=== PATIENT | male | born 1945 | race Caucasian/White ===

== ENCOUNTER 2022-01-28 17:25 | Emergency (ER) | payer MEDICARE, OTHER ==
--- NOTE | 2022-01-28 17:48 | ED Physician Documentation ---
History of Present Illness - Stated complaint Stated Complaint: FALL - Chief complaint Chief Complaint: Trauma Hd/Nk - History obtained from History obtained from: EMS - History of Present Illness Timing: Today Pain level max: 0 Pain level now: 0 - Additonal information Additional information: Patient is a 76-year-old male who presents to the emergency department after a fall today. He lives in memory care, he is unable to give history. EMS states that they found him on his side on the floor next to his bed. Bleeding from the mouth. He is not on blood thinners. Patient is not complaining of any pain. Unknown loss of consciousness. Review of Systems Unable to obtain: Dementia PD PAST MEDICAL HISTORY - Past Medical History Past Medical History: Yes Neuro: Dementia, Parkinson's - Present Medications Home Medications: Ambulatory Orders Medication Instructions Recorded Confirmed Carbidopa/Levodopa 25/100 [Sinemet 1 tab PO TID 01/28/22 01/28/22 25 mg/100 mg] Cholecalciferol [Vitamin D3] 25 mcg PO DAILY 01/28/22 01/28/22 Lisinopril/Hydrochlorothiazide 1 each PO DAILY 01/28/22 01/28/22 [Zestoretic 10-12.5 mg Tablet] QUEtiapine [SEROquel] 25 mg PO BID 01/28/22 01/28/22 Ubidecarenone [Coenzyme Q10] 100 mg PO DAILY 01/28/22 01/28/22 buPROPion HCL [Bupropion Xl] 300 mg PO DAILY 01/28/22 01/28/22 - Allergies Allergies/Adverse Reactions: Allergies Allergy/AdvReac Type Severity Reaction Status Date / Time amoxicillin Allergy Unknown Verified 01/28/22 17:40 pramipexole Allergy Unknown Verified 01/28/22 17:40 PD ED PE NORMAL - Vitals Vital signs reviewed: Yes - General General: No acute distress, Well developed/nourished, Other (Alert, pleasant, confused to place and time) - HEENT HEENT: PERRL, EOMI, Moist mucous membranes, Other (Abrasion to the right cheek. Small abrasion on the right inner cheek. Mild dried blood in the mouth. No scalp hematomas or other lacerations.) - Neck Neck: Other (Patient in a cervical collar, no tenderness) - Cardiac Cardiac: RRR - Respiratory Respiratory: No respiratory distress, Clear bilaterally - Abdomen Abdomen: Soft, Non tender, Non distended - Back Back: No spinal TTP - Derm Derm: Warm and dry - Extremities Extremities: Normal ROM s pain, Other (Full range of motion of the bilateral elbows, wrists, shoulders, knees, ankles and hips without pain) - Neuro Neuro: No motor deficit, No sensory deficit Eye Opening: Spontaneous Motor: Obeys Commands Verbal: Confused GCS Score: 14 Results - Vitals Vitals: Vital Signs - 24 hr 01/28/22 01/28/22 01/28/22 17:25 17:42 20:00 Temperature 36.5 C Heart Rate 70 71 78 Respiratory 17 16 18 Rate Blood Pressure 131/79 H 131/89 H 127/69 O2 Saturation 100 100 100 01/28/22 21:19 Temperature Heart Rate 88 Respiratory 22 Rate Blood Pressure 124/77 O2 Saturation 98 Oxygen O2 Source Room air - Labs Labs: Laboratory Tests 01/28/22 01/28/22 17:47 17:47 WBC 10.2 RBC 4.69 L Hgb 15.2 Hct 43.9 MCV 93.6 MCH 32.4 H MCHC 34.6 RDW 12.9 Plt Count 168 MPV 10.5 Neut # (Auto) 8.6 H Lymph # (Auto) 0.7 L [place] # (Auto) 0.8 Eos # (Auto) 0.1 Baso # (Auto) 0.0 Absolute Nucleated RBC 0.00 Nucleated RBC % 0.0 Sodium 137 Potassium 3.9 Chloride 100 L Carbon Dioxide 29 Anion Gap 8.0 BUN 26 H Creatinine 0.8 Estimated GFR (MDRD) 94 Glucose 115 H Calcium 9.5 Total Bilirubin 1.5 H AST 16 ALT < 10 L Alkaline Phosphatase 51 Total Protein 6.6 L Albumin 4.3 Globulin 2.3 Albumin/Globulin Ratio 1.9 - Rads (name of study) Head CT Radiology: Final report received, EMP read contemporaneously, See rad report Maxillofacial CT Radiology: Final report received, EMP read contemporaneously, See rad report Cervical spine CT Radiology: Final report received, EMP read contemporaneously, See rad report PD MEDICAL DECISION MAKING - ED course Complexity details: reviewed results, re-evaluated patient, considered differential, d/w patient, d/w family ED course: No acute findings on CT scans. Patient is dehydrated and was given IV fluids. He road tested well with a walker. Wounds were cleansed. No lacerations to repair in the mouth. No facial fractures. No spinal fractures. Patient was dehydrated and was given IV fluids. Ambulating at his baseline with a walker. We will have him follow-up with his doctor for further care. was at bedside and plan was discussed with her. Family counseled regarding signs and symptoms for which I believe and urgent re-evaluation would be necessary. Family with good understanding of and agreement to plan and is comfortable going home at this time This document was made in part using voice recognition software. While efforts are made to proofread this document, sound alike and grammatical errors may occur. Departure - Departure Disposition: 01 Home, Self Care Clinical Impression: Fall from ground level, Dehydration Laceration of mouth Qualifiers: Encounter type: initial encounter Qualified Code(s): S01.512A - Laceration without foreign body of oral cavity, initial encounter Facial contusion Qualifiers: Encounter type: initial encounter Qualified Code(s): S00.83XA - Contusion of other part of head, initial encounter Condition: Good Instructions: ED Mechanical Fall Follow-Up: your,doctor in 1 week [Other] Comments: His head CT, cervical spine CT and maxillofacial CT do not show any acute abnormalities today. He was dehydrated and was given IV fluids. Please make sure he is drinking at home. Return if he worsens. The laceration in the mouth will heal on its own. Recommend a liquid diet for the next 24 hours.
[2022-01-28 17:54] LABS: BASOPHILS % (AUTO) 0.2 %; EOSINOPHILS # (AUTO) 0.1 10^3/uL (0.0-0.7); EOSINOPHILS % (AUTO) 0.6 %; HCT - HEMATOCRIT 43.9 % (42.0-52.0); HGB - HEMOGLOBIN 15.2 g/dL (14.0-18.0); LYMPHOCYTES # (AUTO) 0.7 10^3/uL (1.5-3.5); LYMPHOCYTES % (AUTO) 6.4 %; MEAN CORPUSCULAR HEMOGLOBIN 32.4 pg (27.0-31.0); MEAN CORPUSCULAR HGB CONC 34.6 g/dL (32.0-36.0); MEAN CORPUSCULAR VOLUME 93.6 fL (80.0-94.0); MEAN PLATELET VOLUME 10.5 fL (7.4-11.4); MONOCYTES # (AUTO) 0.8 10^3/uL (0.0-1.0); MONOCYTES % (AUTO) 7.8 %; NEUTROPHILS # (AUTO) 8.6 10^3/uL (1.5-6.6); NEUTROPHILS % (AUTO) 84.6 %; PLT - PLATELET COUNT 168 10^3/uL (130-450); RED BLOOD COUNT 4.69 10^6/uL (4.70-6.10); RED CELL DISTRIBUTION WIDTH 12.9 % (12.0-15.0); WHITE BLOOD COUNT 10.2 x10^3/uL (4.8-10.8)
[2022-01-28 18:03] LABS: ALBUMIN 4.3 g/dL (3.2-5.5); ALBUMIN/GLOBULIN RATIO 1.9 (1.0-2.2); ALKALINE PHOSPHATASE 51 IU/L (42-121); ALT ALANINE AMINOTRANSFERASE < 10 IU/L (10-60); AST ASPARTATE AMINOTRANSFERASE 16 IU/L (10-42); BILIRUBIN,TOTAL 1.5 mg/dL (0.2-1.0); BUN - BLOOD UREA NITROGEN 26 mg/dL (6-20); CALCIUM 9.5 mg/dL (8.5-10.3); CARBON DIOXIDE - CO2 29 mmol/L (21-32); CHLORIDE 100 mmol/L (101-111); CREATININE 0.8 mg/dL (0.6-1.2); GFR - MDRD 94 (>89); GLUCOSE 115 mg/dL (70-100); POTASSIUM 3.9 mmol/L (3.5-5.0); SODIUM 137 mmol/L (135-145); TOTAL PROTEIN 6.6 g/dL (6.7-8.2)
--- NOTE | 2022-01-28 18:32 | CT Report ---
PROCEDURE: HEAD WO INDICATIONS: fall, dementia, head/face/neck injury TECHNIQUE: Noncontrast 4.5 mm thick angled axial sections acquired from the foramen magnum to the vertex. For r adiation dose reduction, the following was used: automated exposure control, adjustment of mA and/or kV according to patient size. COMPARISON: None. FINDINGS: Image quality: Excellent. CSF spaces: Basal cisterns are patent. No extra-axial fluid collections. Ventricles are normal in size and shape. Brain: No midline shift. No intracranial masses or hemorrhage. Lee-white matter interface is norm al. There is diffuse cortical volume loss with associated ex vacuo dilatation of the bilateral ventr icles. No acute intracranial hemorrhage or evidence of transcortical infarction. Scattered bilatera l periventricular white matter hypoattenuation likely sequela from chronic small vessel ischemic dise ase. Atherosclerotic calcifications within the intracranial segments of the bilateral internal caroti d arteries are noted. Skull and face: Calvarium and visualized facial bones are intact, without suspicious lesions. Sinuses: Visualized sinuses and mastoids are clear. IMPRESSION: CT head without acute intracranial abnormalities. No acute calvarial fractures. Age-related senescent changes and sequela chronic small vessel ischemic disease. Reviewed by: Ravindra Ellis MD on 01/28/2022 6:30 PM PDT Approved by: Ravindra Ellis MD on 01/28/2022 6:30 PM PDT Station ID: [id number]
--- NOTE | 2022-01-28 18:34 | CT Report ---
PROCEDURE: CERVICAL SPINE WO INDICATIONS: fall, dementia, head/face/neck injury TECHNIQUE: Noncontrast 3 mm thick sections acquired from the skull base to the T4 level. Sagittal and coronal r eformats were then constructed. For radiation dose reduction, the following was used: automated exp osure control, adjustment of mA and/or kV according to patient size. COMPARISON: None. FINDINGS: Image quality: Excellent. Bones: No acute fractures or dislocations. Visualized superior ribs are intact. Craniocervical giovanni ction is intact. C1-C2 relationship is preserved. Normal bony alignment. Moderate-severe multilevel c ervical spondylosis most severe from C3-4 through C6-7. Soft tissues: Prevertebral soft tissues are normal in thickness. No paravertebral hematomas. No ap ical pneumothoraces. Atherosclerotic vascular calcifications. IMPRESSION: Cervical spine without acute fracture or traumatic malalignment. Moderate-severe multilevel cervical spondylosis most prominent from C3-4 through C6-7. Reviewed by: Ravindra Ellis MD on 01/28/2022 6:33 PM PDT Approved by: Ravindra Ellis MD on 01/28/2022 6:33 PM PDT Station ID: [id number]
--- NOTE | 2022-01-28 18:38 | CT Report ---
PROCEDURE: MAXILLOFACIAL WO INDICATIONS: fall, dementia, head/face/neck injury TECHNIQUE: Noncontrast 1.5 mm thick axial images acquired from the mandible through the frontal sinuses, with co nikki and sagittal reformatting. For radiation dose reduction, the following was used: automated ex posure control, adjustment of mA and/or kV according to patient size. COMPARISON: None. FINDINGS: Image quality: Excellent. Bones and teeth: Orbital ríos are intact. Sinus ríos show no fracture or deformity. Nasal bones and septum are intact. Visualized portions of the mandible demonstrate no fractures or subluxation. Zygomatic arches are intact. Pterygoid plates are intact. Visualized portions of the skull base an d auditory canals are intact. Sinuses: Paranasal sinuses are aerated, without fluid levels, mucosal thickening, or mucoceles. Mas toid air cells are aerated. Soft tissues: No edema, masses, or fluid collections. No enlarged lymph nodes. No soft tissue lace rations or debris. Vascular: Visualized vascular structures appear normal in the absence of contrast. Bony vascular fo ramina and canals are intact. IMPRESSION: Negative CT of the maxillofacial bones. No acute fracture or dislocation seen. Reviewed by: Ravindra Ellis MD on 01/28/2022 6:37 PM PDT Approved by: Ravindra Ellis MD on 01/28/2022 6:37 PM PDT Station ID: [id number]
[2022-01-28] MEDS ORDERED: SODIUM CHLORIDE 0.9% 1,000 ML IV STA (19:02)
[2022-01-28 21:21] VITALS: BP 124/77
== END 2022-01-28 22:15 | disposition home or self-care (01) ==
LOC: ED 17:25
DX: E86.0 Dehydration (principal); S00.512A Abrasion of oral cavity, initial encounter; S00.83XA Contusion of other part of head, initial encounter; W18.30XA Fall on same level, unspecified, initial encounter; Y92.193 Bedroom in other specified residential institution as the place of occurrence of the external cause
CPT/HCPCS: 36415; 80053; 85025; 96360; 99281

== ENCOUNTER 2022-07-27 21:13 | Outpatient (CLI) | payer MEDICARE, OTHER | END 2022-07-27 23:59 | disposition critical access hospital (66) | LOC: EMS 21:13 | DX: R05.9 Cough, unspecified (principal); R53.1 Weakness; R63.8 Other symptoms and signs concerning food and fluid intake | CPT/HCPCS: A0425; A0429 ==

== ENCOUNTER 2022-07-27 21:34 | Emergency (ER) | payer MEDICARE, OTHER ==
--- NOTE | 2022-07-27 21:35 | ED Physician Documentation ---
History of Present Illness - Stated complaint Stated Complaint: COUGH - History obtained from History obtained from: EMS, Other (HPI from EMS; EMS obtained information from [facility] (the facility from which patient is being sent). Patient cannot contribute to HPI nor ROS due to dementia.) - History of Present Illness Timing: Unknown - Additonal information Additional information: HPI and ROS limited due to dementia. Patient has had 1 to 2 days of dry cough, decreased appetite, generalized weakness. Per EMS, the [facility] at home [facility] is requesting testing for RSV/influenza/COVID. EMS says that staff reports decreased appetite for 1 to 2 days as noted above, although there is a note accompanying patient's documentation that indicates patient "Ate 100% of breakfast". The same note does indicate that insulin was held due to a blood glucose check of 89. EMS note that patient had 90% pulse ox on room air during their initial assessment, which increased to 96% with 2 L of nasal cannula oxygen in place. Patient does not normally use oxygen. EMS performed a fingerstick for blood sugar on route and result was 132. Review of Systems Unable to obtain: Dementia PD PAST MEDICAL HISTORY - Past Medical History Past Medical History: Yes Cardiovascular: Hypertension Neuro: Dementia, Parkinson's - Present Medications Home Medications: Ambulatory Orders Medication Instructions Recorded Confirmed Carbidopa/Levodopa 25/100 [Sinemet 1 tab PO TID 01/28/22 07/27/22 25 mg/100 mg] Cholecalciferol [Vitamin D3] 25 mcg PO DAILY 01/28/22 01/28/22 Lisinopril/Hydrochlorothiazide 1 each PO DAILY 01/28/22 07/27/22 [Zestoretic 10-12.5 mg Tablet] QUEtiapine [SEROquel] 25 mg PO BID 01/28/22 07/27/22 Ubidecarenone [Coenzyme Q10] 100 mg PO DAILY 01/28/22 07/27/22 buPROPion HCL [Bupropion Xl] 300 mg PO DAILY 01/28/22 07/27/22 Azithromycin [Zithromax] 250 mg PO DAILY #4 tablet 07/28/22 - Allergies Allergies/Adverse Reactions: Allergies Allergy/AdvReac Type Severity Reaction Status Date / Time amoxicillin Allergy Unknown Verified 07/27/22 21:47 pramipexole Allergy Unknown Verified 07/27/22 21:47 - Living Situation Living Arrangement: reports: Assisted living PD ED PE NORMAL - Vitals Vital signs reviewed: Yes - General General: No acute distress, Well developed/nourished, Other (no eye contact (keeps eyes closed; does not follow commands including does not open eyes)) - HEENT HEENT: PERRL, Other (pasty/tacky mucous membranes) - Cardiac Cardiac: RRR - Respiratory Respiratory: No respiratory distress, Clear bilaterally - Abdomen Abdomen: Normal bowel sounds, Soft, Non tender, Non distended - Neuro Eye Opening: To Pain Motor: Localizes to Pain Verbal: None GCS Score: 8 Results - Vitals Vitals: Vital Signs - 24 hr 07/28/22 07/28/22 07/28/22 00:54 02:02 02:44 Heart Rate 87 82 81 Respiratory 27 H 28 H 25 H Rate Blood Pressure 114/99 H 132/94 H 123/86 H O2 Saturation 98 98 99 If not protocol 2 : Oxygen Flow, liters/minute Oxygen O2 Source Room air Oxygen Flow Rate 2 - Labs Labs: Laboratory Tests 07/27/22 07/27/22 07/27/22 21:40 21:49 21:49 WBC 11.1 H RBC 4.08 L Hgb 12.9 L Hct 39.0 L MCV 95.6 H MCH 31.6 H MCHC 33.1 RDW 13.1 Plt Count 222 MPV 9.9 Neut # (Auto) 10.1 H Lymph # (Auto) 0.3 L [place] # (Auto) 0.5 Eos # (Auto) 0.0 Baso # (Auto) 0.1 Absolute Nucleated RBC 0.00 Band Neuts % (Manual) Not Reportable Abnorm Lymph % (Manual) Not Reportable Nucleated RBC % 0.0 Neutrophils # (Manual) Not Reportable Lymphocytes # (Manual) Not Reportable Monocytes # (Manual) Not Reportable Eosinophils # (Manual) Not Reportable Basophils # (Manual) Not Reportable Differential Comment MANUAL=AUTO DIFF WBC Morphology NORMAL APPEARANCE Platelet Estimate NORMAL (130-450,000) Platelet Morphology NORMAL APPEARANCE RBC Morph Micro Appear NORMAL APPEARANCE Sodium 140 Potassium 3.6 Chloride 102 Carbon Dioxide 28 Anion Gap 10.0 BUN 37 H Creatinine 0.9 Estimated GFR (MDRD) 82 L Glucose 164 H Calcium 8.8 Total Bilirubin 2.1 H AST 19 ALT < 10 L Alkaline Phosphatase 54 Total Protein 6.6 L Albumin 3.0 L Globulin 3.6 Albumin/Globulin Ratio 0.8 L Lipase 24 Nasal Adenovirus (PCR) NOT DETECTED Nasal B. parapertussis DNA (PCR) NOT DETECTED Nasal Coronavir 229E PCR NOT DETECTED Nasal Coronavir HKU1 PCR NOT DETECTED Nasal Coronavir NL63 PCR NOT DETECTED Nasal Coronavir OC43 PCR NOT DETECTED Nasal Enterovir/Rhinovir PCR NOT DETECTED Nasal Influenza B PCR NOT DETECTED Nasal Influenza A PCR NOT DETECTED Nasal Parainfluen 1 PCR NOT DETECTED Nasal Parainfluen 2 PCR NOT DETECTED Nasal Parainfluen 3 PCR NOT DETECTED Nasal Parainfluen 4 PCR NOT DETECTED Nasal RSV (PCR) DETECTED A Nasal B.pertussis DNA PCR NOT DETECTED Nasal C.pneumoniae (PCR) NOT DETECTED Jus Human Metapneumo PCR NOT DETECTED Nasal M.pneumoniae (PCR) NOT DETECTED Nasal SARS-CoV-2 (PCR) NOT DETECTED - Rads (name of study) chest xray Radiology: Prelim report reviewed, EMP read indepedently PD Medical Decision Making - ED course Complexity details: reviewed old records, reviewed results, re-evaluated patient, considered differential ED course: Patient is positive on respiratory PCR panel for RSV, negative for other viruses tested. He is in NAD and although he initially arrives to ED with 2 liters [place] oxygen for 90% pulse ox on initial EMS evaluation, he is taken off supplemental oxygen early in ED stay without subsequent desaturation nor respiratory distress. CXR shows right middle lobe infiltrate; although this might be from his RSV infection, will cover for possible superimposed bacterial infection with zithromax (first dose in ED, rx provided to complete five-day course) Departure - Departure Disposition: 01 Home, Self Care Clinical Impression: Pneumonia, RSV infection Condition: Good Instructions: ED RSV Bronchiolitis, ED Pneumonia Adult Prescriptions: Azithromycin [Zithromax] 250 mg PO DAILY #4 tablet Comments: The chest x-ray shows that you have a right-sided pneumonia. You are given an antibiotic (Zithromax) in the emergency department to help treat this pneumonia, and you are being provided a prescription for 4 more days of this antibiotic. You tested positive for RSV. RSV is a common virus that typically causes bronchitis. It is possible that the pneumonia on the x-ray is from the RSV, but I have put you on an antibiotic because sometimes a bacterial infection we will send in as you are fighting off a viral infection. There is no specific treatment for RSV. Discharge Date/Time: 07/28/22 03:55
[2022-07-27 22:00] LABS: BASOPHILS # (AUTO) 0.1 10^3/uL (0.0-0.1); BASOPHILS % (AUTO) 0.8 %; EOSINOPHILS % (AUTO) 0.3 %; HGB - HEMOGLOBIN 12.9 g/dL (14.0-18.0); LYMPHOCYTES # (AUTO) 0.3 10^3/uL (1.5-3.5); LYMPHOCYTES % (AUTO) 2.5 %; MEAN CORPUSCULAR HEMOGLOBIN 31.6 pg (27.0-31.0); MEAN CORPUSCULAR HGB CONC 33.1 g/dL (32.0-36.0); MEAN CORPUSCULAR VOLUME 95.6 fL (80.0-94.0); MEAN PLATELET VOLUME 9.9 fL (7.4-11.4); MONOCYTES # (AUTO) 0.5 10^3/uL (0.0-1.0); MONOCYTES % (AUTO) 4.8 %; NEUTROPHILS # (AUTO) 10.1 10^3/uL (1.5-6.6); PLT - PLATELET COUNT 222 10^3/uL (130-450); RED BLOOD COUNT 4.08 10^6/uL (4.70-6.10); RED CELL DISTRIBUTION WIDTH 13.1 % (12.0-15.0); WHITE BLOOD COUNT 11.1 x10^3/uL (4.8-10.8)
[2022-07-27 22:13] LABS: ALBUMIN/GLOBULIN RATIO 0.8 (1.0-2.2); ALKALINE PHOSPHATASE 54 IU/L (42-121); ALT ALANINE AMINOTRANSFERASE < 10 IU/L (10-60); AST ASPARTATE AMINOTRANSFERASE 19 IU/L (10-42); BILIRUBIN,TOTAL 2.1 mg/dL (0.2-1.0); BUN - BLOOD UREA NITROGEN 37 mg/dL (6-20); CALCIUM 8.8 mg/dL (8.5-10.3); CARBON DIOXIDE - CO2 28 mmol/L (21-32); CHLORIDE 102 mmol/L (101-111); CREATININE 0.9 mg/dL (0.6-1.2); GFR - MDRD 82 (>89); GLUCOSE 164 mg/dL (70-100); LIPASE 24 U/L (22-51); POTASSIUM 3.6 mmol/L (3.5-5.0); SODIUM 140 mmol/L (135-145); TOTAL PROTEIN 6.6 g/dL (6.7-8.2)
[2022-07-27 22:29] LABS: DIFFERENTIAL COMMENT MANUAL=AUTO DIFF; PLATELET ESTIMATE, MANUAL NORMAL (130-450,000) (NORMAL); PLATELET MORPHOLOGY NORMAL APPEARANCE (NORMAL); RBC MORPHOLOGY (MULTIPLE) NORMAL APPEARANCE (NORMAL); WBC MORPHOLOGY (MULTIPLE) NORMAL APPEARANCE (NORMAL)
[2022-07-27] MEDS ORDERED: SODIUM CHLORIDE 0.9% 500 ML IV STA (22:50)
--- NOTE | 2022-07-27 22:50 | XRAY Report ---
PROCEDURE: Chest 1 View X-Ray INDICATIONS: cough TECHNIQUE: One view of the chest was acquired. COMPARISON: None. FINDINGS: Surgical changes and devices: None. Lungs and pleura: Focal right midlung infiltrate can be seen laterally, with poorly defined infiltra eben seen elsewhere within the right lung, primarily inferiorly. Mediastinum: Mediastinal contours appear normal. Heart size is normal. Calcification is seen of the aortic arch. Bones and chest wall: No suspicious bony lesions. Age-appropriate degenerative changes are seen. O verlying soft tissues appear unremarkable. IMPRESSION: Right-sided pneumonia, most focal within the right midlung laterally. Reviewed by: Ricardo Fowler MD on 07/27/2022 9:48 PM [facility] Approved by: Ricardo Fowler MD on 07/27/2022 9:48 PM [facility] Station ID: [id number]
[2022-07-27 23:23] LABS: B. PARAPERTUSSIS- RESP PCR PAN NOT DETECTED; B. PERTUSSIS- RESP PCR PANEL NOT DETECTED; C. PNEUMONIAE- RESP PCR PANEL NOT DETECTED; CORONAVIRUS 229E-RESP PCR NOT DETECTED; CORONAVIRUS HKU1-RESP PCR NOT DETECTED; CORONAVIRUS NL63-RESP PCR NOT DETECTED; CORONAVIRUS OC43-RESP PCR NOT DETECTED; HUMAN METAPNEUMOVIRUS NOT DETECTED; INFLUENZA A- RESP PCR PANEL NOT DETECTED; INFLUENZA B - RESP PCR PANEL NOT DETECTED; M. PNEUMONIAE- RESP PCR PANEL NOT DETECTED; PARAINFLUENZA VIRUS 1 NOT DETECTED; PARAINFLUENZA VIRUS 2 NOT DETECTED; PARAINFLUENZA VIRUS 3 NOT DETECTED; PARAINFLUENZA VIRUS 4 NOT DETECTED; RHINOVIRUS/ENTEROVIRUS NOT DETECTED; RSV- RESP PCR PANEL DETECTED; SARS-CoV-2 -RESP PCR PANEL NOT DETECTED
[2022-07-28] MEDS ORDERED: AZITHROMYCIN 250 MG TABLET PO STA (02:13)
[2022-07-28] MEDS ORDERED: AZITHROMYCIN INJ 500 MG in SODIUM CHLORIDE 0.9% 250 ML IV STA (02:24)
[2022-07-28 05:00] VITALS: BP 123/86
== END 2022-07-28 03:55 | disposition home or self-care (01) ==
LOC: EDUNIT# → ED 21:34
DX: J18.9 Pneumonia, unspecified organism (principal); B97.4 Respiratory syncytial virus as the cause of diseases classified elsewhere; Z20.822 Contact with and (suspected) exposure to COVID-19
CPT/HCPCS: 36415; 80053; 83690; 85025; 87633; 96361; 96365; 99283

== ENCOUNTER 2022-07-28 03:56 | Outpatient (CLI) | payer MEDICARE, OTHER | END 2022-07-28 03:57 | disposition home or self-care (01) | LOC: EMS 03:56 | PROVIDERS: ATTEND Emergency Medicine | DX: J18.9 Pneumonia, unspecified organism (principal); B97.4 Respiratory syncytial virus as the cause of diseases classified elsewhere; R53.1 Weakness; R41.0 Disorientation, unspecified | CPT/HCPCS: A0425; A0428 ==

== ENCOUNTER 2022-08-03 16:59 | Outpatient (CLI) | payer MEDICARE, OTHER | END 2022-08-03 17:00 | disposition EMS.NT | LOC: EMS 16:59 | DX: R63.8 Other symptoms and signs concerning food and fluid intake (principal) ==

== ENCOUNTER 2022-08-04 11:11 | Outpatient (CLI) | payer MEDICARE, OTHER | END 2022-08-04 11:12 | disposition critical access hospital (66) | LOC: EMS 11:11 | DX: R09.89 Other specified symptoms and signs involving the circulatory and respiratory systems (principal); R41.82 Altered mental status, unspecified; R53.1 Weakness | CPT/HCPCS: A0425; A0429 ==

== ENCOUNTER 2022-08-04 11:29 | Emergency (ER) | payer MEDICARE, OTHER ==
[2022-08-04] MEDS ORDERED: SODIUM CHLORIDE 0.9% 1,000 ML IV STA (11:36)
--- NOTE | 2022-08-04 11:41 | ED Physician Documentation ---
History of Present Illness - Stated complaint Stated Complaint: AMS/SOA - Additonal information Additional information: History is obtained from EMS as well as [facility] medical records chart review. History is limited from patient due to dementia and altered mental status. 76-year-old male who has a history of dementia as well as Parkinson's who resides at a memory care center is brought into the emergency department for evaluation of altered mental status. This gentleman was seen 1 week ago on 28 July for a cough. At that time he tested positive for RSV. Chest x-ray showed right-sided pneumonia and he was started on azithromycin. Per EMS care staff reported that yesterday the patient was at his usual health. This morning when they woke him they found that he was drowsy. He required more assistance than normal to get out of bed. While they were helping feed him oatmeal he was drooling and not chewing or swallowing. They subsequently returned him to bed. Short while later on a status check they found that he was purple and mottled with agonal breaths. EMS advised CPR to be initiated however it was not initiated. The patient is a comfort measures DNR. He presents here to the emergency department grimacing only to pain and localizing on his right side. He is nonverbal groaning only. His blood sugar on scene was 150. He did require high flow nasal cannula for EMS and he arrives with saturations at 97% unlabored. Normotensive 107/66. Afebrile. Review of Systems Unable to obtain: Dementia PD PAST MEDICAL HISTORY - Past Medical History Cardiovascular: Hypertension Neuro: Dementia, Parkinson's Psych: Anxiety - Present Medications Home Medications: Ambulatory Orders Medication Instructions Recorded Confirmed Carbidopa/Levodopa 25/100 [Sinemet 1 tab PO TID 01/28/22 07/27/22 25 mg/100 mg] Cholecalciferol [Vitamin D3] 25 mcg PO DAILY 01/28/22 01/28/22 Lisinopril/Hydrochlorothiazide 1 each PO DAILY 01/28/22 07/27/22 [Zestoretic 10-12.5 mg Tablet] QUEtiapine [SEROquel] 25 mg PO BID 01/28/22 07/27/22 Ubidecarenone [Coenzyme Q10] 100 mg PO DAILY 01/28/22 07/27/22 buPROPion HCL [Bupropion Xl] 300 mg PO DAILY 01/28/22 07/27/22 Azithromycin [Zithromax] 250 mg PO DAILY #4 tablet 07/28/22 - Allergies Allergies/Adverse Reactions: Allergies Allergy/AdvReac Type Severity Reaction Status Date / Time amoxicillin Allergy Unknown Verified 07/27/22 21:47 pramipexole Allergy Unknown Verified 07/27/22 21:47 - Social History Does the pt smoke?: No Smoking Status: Never smoker PD ED PE EXPANDED - General General: Unresponsive - HEENT HEENT: PERRL, Dry mucous membranes (clenched teeth), Other (unable to assess EMOI) - Cardiac Cardiac: Regular Rate, Radial strong equal, Pedal strong equal, Cap refill < 2 sec. No: Murmur Present - Respiratory Respiratory: Clear to ausultation rishi. No: Distress, Labored, Accessory mm use, Retractions, Wheezing, Rhonchi - Abdomen Abdomen: Normal Bowel sounds, Surgical scars (present and well healed) - Derm Derm: Normal color, Warm and dry. No: Rash - Neuro Neuro: Other (localizes with right arm and withdraws on left) - GCS Eye Opening: None Motor: Localizes to Pain Verbal: Incomprehensible Total: 8 Results - Vitals Vitals: Vital Signs - 24 hr 08/04/22 08/04/22 08/04/22 11:56 12:01 13:07 Temperature 36.8 C Heart Rate 91 Respiratory 19 Rate Blood Pressure 120/76 O2 Saturation 83 L 95 99 If not protocol 15 6 : Oxygen Flow, liters/minute 08/04/22 17:15 Temperature Heart Rate Respiratory Rate Blood Pressure O2 Saturation 93 If not protocol : Oxygen Flow, liters/minute Oxygen O2 Source Room air Oxygen Flow Rate 15 - Labs Labs: Laboratory Tests 08/04/22 08/04/22 08/04/22 11:44 11:44 12:14 WBC 12.2 H RBC 4.88 Hgb 15.1 Hct 49.6 MCV 101.6 H MCH 30.9 MCHC 30.4 L RDW 13.9 Plt Count 423 MPV 10.7 Neut # (Auto) 11.0 H Lymph # (Auto) 0.6 L [place] # (Auto) 0.5 Eos # (Auto) 0.0 Baso # (Auto) 0.0 Absolute Nucleated RBC 0.00 Nucleated RBC % 0.0 Sodium 155 H* Potassium 3.2 L Chloride 110 Carbon Dioxide 33 H Anion Gap 12.0 BUN 46 H Creatinine 0.9 Estimated GFR (MDRD) 82 L Glucose 179 H Calcium 8.7 Total Bilirubin 1.0 AST 16 ALT 13 Alkaline Phosphatase 69 Total Protein 6.5 L Albumin 2.5 L Globulin 4.0 Albumin/Globulin Ratio 0.6 L Lipase 37 Nasal Adenovirus (PCR) NOT DETECTED Nasal B. parapertussis DNA (PCR) NOT DETECTED Nasal Coronavir 229E PCR NOT DETECTED Nasal Coronavir HKU1 PCR NOT DETECTED Nasal Coronavir NL63 PCR NOT DETECTED Nasal Coronavir OC43 PCR NOT DETECTED Nasal Enterovir/Rhinovir PCR NOT DETECTED Nasal Influenza B PCR NOT DETECTED Nasal Influenza A PCR NOT DETECTED Nasal Parainfluen 1 PCR NOT DETECTED Nasal Parainfluen 2 PCR NOT DETECTED Nasal Parainfluen 3 PCR NOT DETECTED Nasal Parainfluen 4 PCR NOT DETECTED Nasal RSV (PCR) DETECTED A Nasal B.pertussis DNA PCR NOT DETECTED Nasal C.pneumoniae (PCR) NOT DETECTED Jus Human Metapneumo PCR NOT DETECTED Nasal M.pneumoniae (PCR) NOT DETECTED Nasal SARS-CoV-2 (PCR) NOT DETECTED - Rads (name of study) cxr Radiology: EMP read indepedently (Improving though persistent right middle lobe pneumonia in comparison to the x-ray completed on 07/27/2022) Ct head Radiology: Final report received (Atrophy and chronic ischemic change without intracranial hemorrhage or mass-effect. Air fluid and debris in the left maxillary and sphenoid sinus may reflect acute sinusitis. Fluid in the right mastoid and middle ear may be inflammatory or postinflammatory.) PD Medical Decision Making - ED course Complexity details: reviewed results, re-evaluated patient, considered differential, d/w patient, d/w family ED course: In brief this is a 76-year-old male that has a history of dementia as well as Parkinson's who presents to the emergency department for altered mental status. Seen a little more than a week ago for RSV and pneumonia and was started on azithromycin. He is a comfort care measures DNR. It appears that this morning he has had progressive weakness unable to chew his food or swallow. Staff at the care facility noted that he had agonal respirations as well as a dark mottled appearance and EMS was summoned. The reports that they were trying to get in touch with palliative care and hospice this week but were unable to due to the recent holidays. I have obtained an x-ray today in the emergency department that does show persistence of the right middle lobe pneumonia though my interpretation is that it is improved from recent (also corroborated by radiologist) I also obtained a CT of the head that showed no acute findings to suggest bleeding, mass-effect, or shift. We did obtain a CBC that shows a hemoglobin of 15 (which is an increase of 2 gms over the last week.). This is coupled with serum sodium of 155 and a BUN of 46 and decreasing oral intake and these findings are consistent with his clinical appearance which suggest significant dehydration. I have ordered 1 L of sodium chloride to be infused. I have spoken with his at the bedside. She is quite clear that she wishes her to be allowed a natural . She would not pursue CPR intubation or artificial nutrition. She would not wish for further IV hydration. She is aware that when the oxygen is removed he has a rather rapid decline in his saturations to the mid 70s. At present he is on 6 L nasal cannula. She would like the patient's children (sons and daughter) to arrive to the emergency department before discontinuing oxygen. 1715: All of the appropriate family members including children have arrived at the bedside. I did spend time ensuring that they understood the plan and process. They all agree that Emeka would not want further life-sustaining measures including IV hydration, oral nutrition or advanced life-saving measures such as intubation. They also request that we discontinue administering oxygen. With this request I turned the oxygen via NC off at 1715. He appears to be in no acute distress. Should he develop significant hypoxia, that may hasten his departure though we discussed that if he does not pass within a few hours we would likely discharge him back to home place. I would write a prescription for some oral morphine to be administered as needed for any pain or air hunger/breathlessness. 1820: Patient remains a Clair Coma Scale of 8-9. His room air saturations are 94% and he has no respiratory distress. I will defer the administration of morphine as patient does not appear to be in pain or with any air hunger. At this time he is going to be discharged back to home place. Patient's indicates to me that the patient had a hospice order placed by his care team yesterday and she will follow through with this order on Saturday. I did briefly inquire with our public safety director Dr. Farrell if we could admit the patient to our hospital for hospice measures today but she indicated that that would not be possible. Patient is discharged in poor clinical condition with a POLST form indicating comfort care measures back to home place. Departure - Departure Disposition: 01 Home, Self Care Clinical Impression: Dehydration, Hypernatremia, RSV infection, History of dementia Altered mental status Qualifiers: Altered mental status type: coma Coma depth: [place] coma 3-8 Coma timing: at arrival to emergency department Qualified Code(s): R40.2432 - Clair coma scale score 3-8, at arrival to emergency department Comments: Emeka came to the emergency department this morning because he has had decreasing mental status over the last few days and has been significantly lethargic as well as decreasing his oral intake. A hospice referral was placed for him yesterday. He was seen earlier this week for RSV and found to have pneumonia for which she was started on azithromycin. Today in the emergency department Emeka continues to have an altered mental status. This is most likely due to dehydration and his dementia. The CT scan did not show any worrisome findings. His chest x-ray shows the right middle lobe pneumonia though it appears somewhat improved from the recent ER visit. We did give aMtt some IV fluids here in the ER though it has not improved his mental status Emeka has a POLST form indicating he prefers comfort care measures including no use of artificial nutrition or hydration. The POLST form also indicates that he should not receive CPR or mechanical ventilation. Initially when Emeka was here in the ER he did receive oxygen therapy however when it was discontinued after about 6 to 8 hours of treatment here in the ER he had no further decline in his saturations. But with the dementia and the comfort care measures it is likely that he will continue to decline over the next several days as he simply stopped eating and drinking. He did have a hospice referral placed on Saturday and it is critically important that he continue to follow through with this referral.
[2022-08-04 11:57] LABS: BASOPHILS % (AUTO) 0.1 %; HCT - HEMATOCRIT 49.6 % (42.0-52.0); HGB - HEMOGLOBIN 15.1 g/dL (14.0-18.0); LYMPHOCYTES # (AUTO) 0.6 10^3/uL (1.5-3.5); MEAN CORPUSCULAR HEMOGLOBIN 30.9 pg (27.0-31.0); MEAN CORPUSCULAR HGB CONC 30.4 g/dL (32.0-36.0); MEAN CORPUSCULAR VOLUME 101.6 fL (80.0-94.0); MEAN PLATELET VOLUME 10.7 fL (7.4-11.4); MONOCYTES # (AUTO) 0.5 10^3/uL (0.0-1.0); MONOCYTES % (AUTO) 3.8 %; NEUTROPHILS % (AUTO) 90.5 %; PLT - PLATELET COUNT 423 10^3/uL (130-450); RED BLOOD COUNT 4.88 10^6/uL (4.70-6.10); RED CELL DISTRIBUTION WIDTH 13.9 % (12.0-15.0); WHITE BLOOD COUNT 12.2 x10^3/uL (4.8-10.8)
[2022-08-04 12:35] LABS: ALBUMIN 2.5 g/dL (3.2-5.5); ALBUMIN/GLOBULIN RATIO 0.6 (1.0-2.2); CALCIUM 8.7 mg/dL (8.5-10.3); CREATININE 0.9 mg/dL (0.6-1.2); POTASSIUM 3.2 mmol/L (3.5-5.0); TOTAL PROTEIN 6.5 g/dL (6.7-8.2)
--- NOTE | 2022-08-04 12:35 | CT Report ---
PROCEDURE: CT brain without contrast INDICATIONS: AMS TECHNIQUE: Noncontrast 4.5 mm thick angled axial sections acquired from the foramen magnum to the vertex. For r adiation dose reduction, the following was used: automated exposure control, adjustment of mA and/or kV according to patient size. COMPARISON: None. FINDINGS: Image quality: Excellent. CSF spaces: Basal cisterns are patent. No extra-axial fluid collections. Ventricles are normal in size and shape. Brain: No midline shift. No intracranial masses or hemorrhage. Lee-white matter interface is norm al. Moderate atrophy and multifocal white matter chronic ischemic change noted. Atherosclerotic vasc ular calcification noted in the cavernous segments of both internal carotid arteries as well as the i ntradural vertebral arteries. Skull and face: Calvarium and visualized facial bones are intact, without suspicious lesions. Sinuses: Air-fluid level and debris noted in the left maxillary sinus and sphenoid. Right mastoid eff usion associated with fluid of the right middle ear is well IMPRESSION: Atrophy and chronic ischemic change without intracranial hemorrhage or mass effect Air-fluid levels and debris in the left maxillary and sphenoid sinus may reflect acute sinusitis. Fluid in right mastoid and middle ear may be inflammatory or post inflammatory Reviewed by: Jared Stevenson MD on 08/04/2022 11:34 AM [facility] Approved by: Jared Stevenson MD on 08/04/2022 11:34 AM [facility] Station ID: [id number]
--- NOTE | 2022-08-04 13:16 | XRAY Report ---
PROCEDURE: Chest 1 View X-Ray INDICATIONS: chest pain TECHNIQUE: One view of the chest was acquired. COMPARISON: None. FINDINGS: Surgical changes and devices: None. Lungs and pleura: Right lung pulmonary infiltrate noted laterally. Underlying hyperinflation and chr onic interstitial changes. Left lung and both pleural spaces clear Mediastinum: Mediastinal contours appear normal. Heart size is normal. Bones and chest wall: No suspicious bony lesions. Overlying soft tissues appear unremarkable. IMPRESSION: Right-sided pulmonary infiltrate, consistent with pneumonia Reviewed by: Jared Stevenson MD on 08/04/2022 12:15 PM [place] Approved by: Jared Stevenson MD on 08/04/2022 12:15 PM [facility] Station ID: [id number]
[2022-08-04 14:02] LABS: B. PARAPERTUSSIS- RESP PCR PAN NOT DETECTED; B. PERTUSSIS- RESP PCR PANEL NOT DETECTED; C. PNEUMONIAE- RESP PCR PANEL NOT DETECTED; CORONAVIRUS 229E-RESP PCR NOT DETECTED; CORONAVIRUS HKU1-RESP PCR NOT DETECTED; CORONAVIRUS NL63-RESP PCR NOT DETECTED; CORONAVIRUS OC43-RESP PCR NOT DETECTED; HUMAN METAPNEUMOVIRUS NOT DETECTED; INFLUENZA A- RESP PCR PANEL NOT DETECTED; INFLUENZA B - RESP PCR PANEL NOT DETECTED; M. PNEUMONIAE- RESP PCR PANEL NOT DETECTED; PARAINFLUENZA VIRUS 1 NOT DETECTED; PARAINFLUENZA VIRUS 2 NOT DETECTED; PARAINFLUENZA VIRUS 3 NOT DETECTED; PARAINFLUENZA VIRUS 4 NOT DETECTED; RHINOVIRUS/ENTEROVIRUS NOT DETECTED; RSV- RESP PCR PANEL DETECTED; SARS-CoV-2 -RESP PCR PANEL NOT DETECTED
[2022-08-04 18:36] VITALS: BP 134/80
== END 2022-08-04 19:16 | disposition home or self-care (01) ==
LOC: EDUNIT# → ED 11:29
DX: E86.0 Dehydration (principal); E87.0 Hyperosmolality and hypernatremia; B97.4 Respiratory syncytial virus as the cause of diseases classified elsewhere; R40.2432 Glasgow coma scale score 3-8, at arrival to emergency department; G20 Parkinson's disease; F02.80 Dementia in other diseases classified elsewhere, unspecified severity, without behavioral disturbance, psychotic disturbance, mood disturbance, and anxiety; I10 Essential (primary) hypertension; Z20.822 Contact with and (suspected) exposure to COVID-19
CPT/HCPCS: 36415; 80053; 83690; 85025; 87633; 96360; 96361; 99284

== ENCOUNTER 2022-08-04 19:04 | Outpatient (CLI) | payer MEDICARE, OTHER | END 2022-08-04 19:05 | disposition home or self-care (01) | LOC: EMS 19:04 | PROVIDERS: ATTEND Registered Nurse | DX: Z51.5 Encounter for palliative care (principal); Z74.01 Bed confinement status; F03.90 Unspecified dementia, unspecified severity, without behavioral disturbance, psychotic disturbance, mood disturbance, and anxiety | CPT/HCPCS: A0425; A0428 ==